=== PATIENT | female | born 1940 | race Caucasian/White ===

== ENCOUNTER → 2017-11-13 | Outpatient (CLI) | payer OTHER ==
[~2017-11-13] MED LIST: ACCUPRIL40 MG PO; ASPIR 8181 MG PO; DOXYCYCLINE 10100 MG PO; ENOXAPARIN40 MG/0.1 SUBQ; HUMALOG PE100 UNIT/M SUBQ; HYDROCHLOROTHIA25 M2 PO; KLOR-CON 1010 MEQ PO; LEVOTHYROXINE0.05 MG PO; LOPRESSOR50 PO; METOPROLOL TART25 MG PO; MULTIVITAMINS1 EACH PO; NORCO 5-325 TA1 EACH PO; SIMVASTATIN40 MG PO; SYNTHROID50 MCG PO; TOUJEO SOL300 UNIT/1 SUBQ
== END ==
LOC: CAT 12:58
DX: R91.1 Solitary pulmonary nodule (principal); R91.8 Other nonspecific abnormal finding of lung field

== ENCOUNTER → 2017-12-19 | Outpatient (CLI) | payer OTHER ==
[~2017-12-19] VITALS: Ht 167.6 cm; Wt 136.1 kg
--- NOTE | ~2017-12-19 | P ---
[facility] [place] [place] [address] PROCEDURE REPORT Name: JOSEPHINE ALEJANDRE Room #: [facility] [place].#: [id number] Admission: Attend Phys: Edy Mann MD Discharge: Date of : 36 Report #: [id number] THIS REPORT FOR: //name// CC: Edy Higginbotham MD DATE OF SERVICE: 12/19/2017 BRIEF HISTORY: The patient is a 77-year-old woman with history of colon cancer in 2008. She presents for high risk screening colonoscopy. She also has a history of breast cancer. Last colonoscopy in 2009. PREOPERATIVE DIAGNOSIS: High risk screening colonoscopy due to history of colon cancer. POSTOPERATIVE DIAGNOSES: 1. Diminutive polyp at 20 cm. 2. Moderate sigmoid diverticulosis coli. 3. Internal hemorrhoids. MEDICATIONS: Deep sedation with propofol per anesthesia. SPECIMEN: Polyp from 20 cm. ESTIMATED BLOOD LOSS: 3 mL. PROCEDURE: Colonoscopy to surgical anastomosis and terminal ileum with biopsy. FINDINGS: Prior to propofol sedation, procedure of colonoscopy discussed with the patient as well as reviewed with the patient as well as potential risks and its complications. She indicates she understands and desires to proceed. DESCRIPTION OF PROCEDURE: With the patient in left lateral decubitus position, digital examination was completed revealed no abnormalities. Subsequently, the [employer] video colonoscope was introduced into the rectum and advanced under direct vision to the ileocolonic anastomosis. The ileocolonic anastomosis was identified and noted to be unremarkable. It was widely patent. There were no ulcers or erosions. The scope was advanced in the distal segment of terminal ileum, which was noted to be unremarkable. At that point, the scope was slowly withdrawn and careful circumferential views were obtained. Upon slow withdrawal of the scope, the prep was noted to be good. The mucosa was within normal limits, normal vascular pattern and normal light reflex. As we withdrew the scope, no abnormalities were noted until the sigmoid colon was reached and she was noted to have [id number] sigmoid diverticular disease without endoscopic evidence of diverticulitis. Scope was further withdrawn and at about [facility] [address] [place] [address] PROCEDURE REPORT Name: JOSEPHINE ALEJANDRE Room #: [facility] [place].#: [id number] Admission: Attend Phys: Edy Mann MD Discharge: Date of : 36 Report #: [id number] 20 cm, which to be about the rectosigmoid junction, a diminutive polyp was seen and removed by biopsy. Scope was withdrawn in the rectum. No abnormalities were noted upon retroflexion; however, small to moderate internal hemorrhoids were seen. Scope was withdrawn. The patient tolerated procedure well. CONDITION OF THE PATIENT UPON DISCHARGE: Following procedure, the patient drowsy, aroused, conversant and will be discharged home when fully ambulatory. INSTRUCTIONS TO THE PATIENT AND FAMILY AT THE TIME OF DISCHARGE: One small polyp identified and removed as described above. We will follow up on the path. However, in view of her history of colon cancer, I suggest she return in 3 years for followup colonoscopy. Last colonoscopy was about 8 years ago. Withdrawal time from the ileocolonic anastomosis was 12 minutes 16 seconds. By: 1222 1616 Edy Mann MD /nt
--- NOTE | ~2017-12-19 | S ---
[facility] [place] [address] SURGICAL PATH RPT PROCEDURE Name: LEILANI JAFFE Room #: [facility].#: [id number] Admission: 12/19/17 Date of : 36 Discharge: Report #: [id number] Path Case #: [id number] PATHOLOGY REPORT COLLECTION DATE: 12/19/2017 RECEIVED DATE: 12/19/2017 SUBMITTING PHYS: Dr. Edy Mann OTHER PHYS: Dr. Ben Higginbotham SPECIMEN(S) RECEIVED: A.Polyp at 20 cm * * * * * * * * * * * * FINAL DIAGNOSIS: "Polyp at 20 cm", biopsy: - Tubular adenoma; no high-grade dysplasia. (CLW:pit; 12/20/2017) PATHOLOGIST: Hiwot Nieves M.D. REPORT ELECTRONICALLY SIGNED BY: Hiwot Nieves M.D. DATE/TIME: 12/20/2017 15:07 * * * * * * * * * * * * GROSS PATHOLOGY: The specimen is received in formalin, labeled "Leilani Jaffe and polyp at 20 cm", are two rasmussen soft tissues 0.2 cm and is 0.3 cm in greatest dimension, entirely submitted in A1. (SWS; 12/19/2017) CLINICAL HISTORY: Gqmdt-dlrvqchmm-ccjtbaq of colon cancer INITIAL CPT CODE(S): A; 29291 Professional services performed by [facility] at [facility] [address], [place] [address] Technical services performed by [facility] at [address] [place] [address], [address], [place] [address]. [facility] [address] [place] [address] [address] [place] [address] SURGICAL PATH RPT PROCEDURE Name: LEILANI JAFFE Room #: [facility] Wallace#: [id number] Admission: 12/19/17 Date of : 36 Discharge: Report #: [id number] Path Case #: [id number] [place] [address] PHONE: [phone] DIRECTOR: Alexy Gallardo M.D. * * * END OF REPORT * * *
[2017-12-20 11:56] LABS: GLUCOSE POCT 141 mg/dl (70-99)
== END | disposition home or self-care (01) ==
LOC: GI 05:46
PROVIDERS: Specialist
DX: Z08 Encounter for follow-up examination after completed treatment for malignant neoplasm (principal); Z85.038 Personal history of other malignant neoplasm of large intestine; K57.30 Diverticulosis of large intestine without perforation or abscess without bleeding; D12.7 Benign neoplasm of rectosigmoid junction; K64.8 Other hemorrhoids; I10 Essential (primary) hypertension; E11.9 Type 2 diabetes mellitus without complications; E78.00 Pure hypercholesterolemia, unspecified; D64.9 Anemia, unspecified; Z98.0 Intestinal bypass and anastomosis status; Z85.3 Personal history of malignant neoplasm of breast; Z87.891 Personal history of nicotine dependence; Z90.710 Acquired absence of both cervix and uterus; Z90.49 Acquired absence of other specified parts of digestive tract; Z98.41 Cataract extraction status, right eye; Z98.42 Cataract extraction status, left eye; Z79.4 Long term (current) use of insulin; Z87.442 Personal history of urinary calculi; Z98.890 Other specified postprocedural states; Z79.899 Other long term (current) drug therapy; Z79.82 Long term (current) use of aspirin
CPT/HCPCS: 62110; 62900

== ENCOUNTER → 2021-09-12 | Outpatient (CLI) | payer OTHER | LOC: HYPER 14:12 | PROVIDERS: ATTEND Emergency Medicine | DX: I87.332 Chronic venous hypertension (idiopathic) with ulcer and inflammation of left lower extremity (principal); L97.122 Non-pressure chronic ulcer of left thigh with fat layer exposed; I87.323 Chronic venous hypertension (idiopathic) with inflammation of bilateral lower extremity; S70.12XA Contusion of left thigh, initial encounter; R60.0 Localized edema; D18.01 Hemangioma of skin and subcutaneous tissue; R21 Rash and other nonspecific skin eruption; Z87.891 Personal history of nicotine dependence; Z90.710 Acquired absence of both cervix and uterus; Z86.718 Personal history of other venous thrombosis and embolism; Z85.3 Personal history of malignant neoplasm of breast; Z85.038 Personal history of other malignant neoplasm of large intestine; E66.01 Morbid (severe) obesity due to excess calories; Z68.42 Body mass index [BMI] 45.0-49.9, adult; Z79.82 Long term (current) use of aspirin; Z79.4 Long term (current) use of insulin; X58.XXXA Exposure to other specified factors, initial encounter; Y93.89 Activity, other specified; Y92.89 Other specified places as the place of occurrence of the external cause; Y99.8 Other external cause status ==

== ENCOUNTER → 2021-10-02 | Outpatient (CLI) | payer OTHER | LOC: HYPER 15:18 | PROVIDERS: ATTEND Emergency Medicine | DX: I87.332 Chronic venous hypertension (idiopathic) with ulcer and inflammation of left lower extremity (principal); L97.122 Non-pressure chronic ulcer of left thigh with fat layer exposed; I87.323 Chronic venous hypertension (idiopathic) with inflammation of bilateral lower extremity; S70.12XD Contusion of left thigh, subsequent encounter; R60.0 Localized edema; D18.01 Hemangioma of skin and subcutaneous tissue; R21 Rash and other nonspecific skin eruption; E66.01 Morbid (severe) obesity due to excess calories; Z87.891 Personal history of nicotine dependence; Z90.710 Acquired absence of both cervix and uterus; Z86.718 Personal history of other venous thrombosis and embolism; Z85.3 Personal history of malignant neoplasm of breast; Z85.038 Personal history of other malignant neoplasm of large intestine; Z68.42 Body mass index [BMI] 45.0-49.9, adult; Z79.82 Long term (current) use of aspirin; Z79.4 Long term (current) use of insulin; X58.XXXD Exposure to other specified factors, subsequent encounter ==

== ENCOUNTER → 2021-10-17 | Outpatient (CLI) | payer OTHER | LOC: SJCVC 14:38 | PROVIDERS: ATTEND Internal Medicine | DX: I49.9 Cardiac arrhythmia, unspecified (principal); R42 Dizziness and giddiness; I11.0 Hypertensive heart disease with heart failure; I50.32 Chronic diastolic (congestive) heart failure; E78.5 Hyperlipidemia, unspecified; E11.9 Type 2 diabetes mellitus without complications; I87.2 Venous insufficiency (chronic) (peripheral); E03.9 Hypothyroidism, unspecified; E66.01 Morbid (severe) obesity due to excess calories; Z87.891 Personal history of nicotine dependence; Z79.82 Long term (current) use of aspirin; Z79.899 Other long term (current) drug therapy; Z82.49 Family history of ischemic heart disease and other diseases of the circulatory system; Z79.4 Long term (current) use of insulin ==